=== PATIENT | male | born 1930 | race Caucasian/White ===

== ENCOUNTER 2017-08-29 16:04 | Inpatient (IN) | payer MEDICARE, BC ==
[2017-08-29] MEDS ORDERED: NORMAL SALINE 1,000 ML IV ONE (17:33)
--- NOTE | 2017-08-29 17:45 | ERNOTE ---
Medical Problem HPI - Narrative Date of Service: 08/29/17 - General Chief Complaint: General Assessment Time Seen by Provider: 08/29/17 17:14 Source: patient Exam Limitations: no limitations - Immun/Allergies/Home Medications Immunizations: IMMUNIZATION HX Immunizations Up to Date Yes History of Influenza Vaccine Yes Hx Pneumococcal Vaccination Yes Allergies/Adverse Reactions: Allergies terfenadine [From Seldane] Allergy (Unknown, Verified 11/24/15 08:59) adhesive tape Allergy (Unverified 10/30/16 12:58) Sulfa (Sulfonamide Antibiotics) [Sulfa(Sulfonamide Antibiotics)] Adverse Reaction (Mild, Verified 11/24/15 08:59) RASH Home Medications: HOME MEDICATIONS Aspirin [Aspir 81] 81 mg PO DAILY 08/10/12 [Last Taken 12/08/13] Atorvastatin Calcium 40 mg PO DAILY 08/10/12 [Last Taken 12/09/13] Finasteride [Proscar] 5 mg PO DAILY 08/10/12 [Last Taken 12/09/13] Levothyroxine Sodium [Tirosint] 75 mcg PO DAILY 08/10/12 [Last Taken 12/08/13] Nitroglycerin [Nitrostat] 0.4 mg SL [id number] PRN 08/10/12 [Last Taken Unknown] Allopurinol [Zyloprim] 150 mg PO DAILY 08/15/13 [Last Taken 12/09/13] Cholecalciferol [Vitamin D] 1,000 unit PO DAILY 08/15/13 [Last Taken 12/09/13] Cyanocobalamin [Vitamin B-12] 1,000 mcg PO DAILY 08/15/13 [Last Taken 12/09/13] Glucosamine/Chondroitin Sulf A [Glucosamine Chondroitin Cap] 2 each PO 1200 [Last Taken Unknown] Metoprolol Tartrate [Lopressor] 25 mg PO BID 08/15/13 [Last Taken 12/09/13] Warfarin Sodium [Coumadin] 5 mg PO [id number] 08/15/13 [Last Taken 09/14/15] Insulin Glargine,Hum.rec.anlog [Lantus] 45 units SC QAM 12/09/13 [Last Taken 09/12] Insulin Glargine,Hum.rec.anlog [Lantus] 35 units SQ QPM 07/03/14 [Last Taken Unknown] Polyethylene Glycol 3350 [Miralax] 17 gm PO DAILY 07/03/14 [Last Taken Unknown] Fluticasone Propionate [Flonase Allergy Relief] 1 spray NS HS 04/05/15 [Last Taken Unknown] Albuterol Sulfate [Proair Hfa] 1 puff IH Q6H PRN 08/16/15 [Last Taken Unknown] Torsemide 200 mg PO DAILY 08/16/15 [Last Taken Unknown] Warfarin Sodium [Coumadin] 7.5 mg PO WE 08/16/15 [Last Taken 09/14/15] Beta-Carotene(A)-Vits C,E/Mins [Ocutabs Tablet] 1 each PO DAILY 09/13/15 [Last Taken Unknown] Ramipril [Altace] 5 mg PO DAILY 09/13/15 [Last Taken Unknown] Insulin Aspart [Novolog] 15 units SC TID 11/15/15 [Last Taken Unknown] - History of Present History Narrative: Pt. comes in with c/o low blood pressure and weakness for a day. Pt. also states that he has had diarrhea for three days. Pt. states that he has been eating and drinking normally but denies any SOB, CP, fevers, alleviating or aggravating factors. Timing: getting worse Severity: moderate Modifying Factors - (Improves): Present: other - denies Modifying Factors - (Worsens): Present: other - denies Review of Systems - Review of Systems Constitutional: Present: weakness, fatigue, malaise. Absent: recent illness, fever, chills EYE: Present: no symptoms reported ENT: Present: no symptoms reported Respiratory: Present: no symptoms reported. Absent: shortness of breath, cough , wheezing Cardiology: Present: no symptoms reported. Absent: chest pain, palpitations, edema Gastrointestinal/Abdominal: Present: nausea, diarrhea. Absent: abdominal pain Genitourinary: Present: no symptoms reported. Absent: frequency, decreased urinary output Musculoskeletal: Present: no symptoms reported. Absent: back pain, joint pain Skin: Present: no symptoms reported. Absent: rash, change in color Neurological: Present: no symptoms reported. Absent: headache, dizziness/light- headedness, weakness, numbness, tingling All Other Systems: All systems neg except as marked - Patient's Past Medical History Patient History - Medical: Arthritis, Diabetes Type 2, Obesity, Osteoarthritis Patient History - Cardiac/Respiratory: Coronary Heart Disease Patient History - Cancer: Skin Patient History - Surgical Procedures: Cholecystectomy, Colonoscopy, Coronary Bypass Surgery Patient History - Other: None - Family History Mother Family History - Medical: Father Family History - Medical: - Social History Smoking Status: Former smoker Have you smoked in the past 12 months: No Do you dip or chew tobacco: No - Immunizations Immunizations Up to Date: Yes Hx Pneumococcal Vaccination: Yes History of Influenza Vaccine: Yes Physical Exam - Physical Exam General Appearance: Present: wd/wn, alert, no apparent distress Head Exam: Present: normal inspection, no evidence of injury, no tenderness w palpation Eye Exam: Normal inspection: bilateral Ears, Nose, Throat: Present: normal ENT inspection, normal pharynx Neck: Present: normal inspection, nontender, supple, full range of motion. 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 Absent: skin rash ED Progress - Date and Time Seen: Date and Time: 08/29/17 19:21 Discussed case with Lisa and she accepts pt. for admission. - Results and Orders Patient's Lab Results:: I have reviewed the patient's lab results. Results and Orders: Abnormal Lab Results 08/29/17 08/29/17 08/29/17 Range/Units 17:45 17:45 17:45 WBC 12.2 H (4.0-10.5) K/mm3 RDW 16.0 H (11.5-14.0) % Plt Count 136 L (150-450) K/mm3 MPV 10.2 H (6.0-9.5) fl Immature Gran % (Auto) 0.70 H (0.001-0.429) % Immature Gran # (Auto) 0.08 H (0.000-0.0310) K/mm3 Neutrophils % 82.2 H (42-75.0) % Lymphocytes % 9.3 L (20-51) % Neutrophils # 10.1 H (1.3-6.0) K/mm3 Lymphocytes # 1.1 L (1.5-3.5) k/mm3 Anion Gap 14.9 H (6.8-13.8) mmol/L BUN 88 H D (6-23) mg/dL Creatinine 2.27 H D (0.4-1.4) mg/dL Est GFR (Non-Af Amer) 29 L D (60-130) mL/min BUN/Creatinine Ratio 38.8 H (9.0-21.6) Lactic Acid, Venous 2.2 H* (0.4-1.9) mmol/L Calcium Adj for Albumin 8.2 L (8.4-10.2) mg/dL ALT 18 L (19-67) U/L B-Natriuretic Peptide 721 H (5-650) pg/mL - Vital Signs Patient's Vital Signs:: I have reviewed the patient's vital signs. Vital Signs: Vital Signs 08/29/17 08/29/17 16:09 17:11 Temperature 35.8 C L Pulse Rate 76 92 Respiratory 18 18 Rate Blood Pressure 90/42 88/48 O2 Sat by Pulse 94 95 Oximetry - X-Ray X-Ray #1 X-Ray: chest Interpretation: Reviewed by me X-ray Comments: consistent changes with COPD X-Ray #2 X-Ray: abdomen Interpretation: Reviewed by me X-ray Comments: General paucity of bowel gas and scattered bowel gas consistant with colitis - Progress/Reassessment Chief Complaint: General Assessment Progress:: Unchanged Departure Clinical Impression: Gastroenteritis and colitis, toxic, Dehydration Sepsis Qualifiers: Sepsis type: sepsis due to unspecified organism Qualified Code(s): A41.9 - Sepsis, unspecified organism Hypotension Qualifiers: Hypotension type: unspecified hypotension type Qualified Code(s): I95.9 - Hypotension, unspecified - Departure Disposition: [facility] Condition: Serious
[2017-08-29 17:50] LABS: Hematocrit 42.1 % (42.0-52.0); Hemoglobin 14.5 gm/dL (13.5-18.0); Mean Cell Volume 88.6 fl (78-100); Mean Corpuscular Hemoglobin 30.5 pg (27-31); Mean Corpuscular Hgb Conc 34.4 g/dl (32-36); Mean Platelet Volume 10.2 fl (6.0-9.5); Neutrophil # 10.1 K/mm3 (1.3-6.0); Neutrophil % 82.2 % (42-75.0); Platelet Count 136 K/mm3 (150-450); Red Blood Count 4.75 M/mm3 (4.7-6.0); White Blood Count 12.2 K/mm3 (4.0-10.5)
[2017-08-29 18:20] LABS: Albumin * 3.6 gm/dl (3.4-5.0); Anion Gap 14.9 mmol/L (6.8-13.8); BUN/Creatinine Ratio 38.8 (9.0-21.6); Bilirubin, Total 0.8 mg/dL (0.0-1.1); Ca. Corrected For Albumin 8.2 mg/dL (8.4-10.2); Calcium * 8.2 mg/dL (7.9-10.9); Carbon Dioxide 25.9 mmol/L (24-32.6); Potassium 3.8 mmol/L (3.4-4.6); Total Protein 7.4 gm/dL (6.2-8.2)
[2017-08-29] MEDS ORDERED: CIPROFLOXACIN IN 5 % DEXTROSE 400 MG/200 ML BAG IV SCH (18:30)
[2017-08-29] MEDS ORDERED: metroNIDAZOLE/SODIUM CHLORIDE 500 MG/100 ML BAG IV SCH (18:30)
[2017-08-29] MEDS: NORMAL SALINE 1,000 ML IV PRN (20:05)
[2017-08-29] MEDS ORDERED: ALBUTEROL SULFATE 200 PUFF INHALER IH PRN (21:03)
--- NOTE | 2017-08-29 21:15 | HP ---
Chief Complaint - Chief Complaint Date of Service: 08/29/17 Time of Service: 22:00 Chief Complaint: Diarrhea History of Present Illness: Pt is an 87 yo male pt of Dr. Kilpatrick who presented to the ER with reports of "1 loose stool every hours since Saturday." PMH is significant for A-fib-on Coumadin , cardiomyopathy, CKD stage 3 d/t DMII, CHF, COPD, CAD, diabetic neuropathy, Gout, HLD, HTN, mitral regurgitation, and ALEISHA with home O2. Associated symptoms include dizziness, weakness, and dysuria. Denies taking anything for symptoms prior to arrival. Denies any abdominal pain, N/V, blood from rectum, or fever/ chills. Inital BP in ER were in the 90s, which improved with IVF. Pt remained afebrile. Additional laboratory findings were as followed: WBC 12.2, BUN/Creat 88/2.27 (baseline 1.5-1.7), h/h 14.5/42.1, lactic acid 2.2. Chest xray was without any acute findings. Abdominal xray with scattered air fluid levels in the upper abdomen. UA consistent with UTI, culture to follow. Pt received one dose of Flagyl and Cipro. Due to his multiple co-morbidities, advanced age, and presenting symptoms he will be admitted for further workup and treatment of gastroenteritis, YRIS, UTI, and hyptotension. - Patient's Past Medical History Patient History - Medical: Arthritis, Diabetes Type 2 Insulin Dependent, Obesity , Osteoarthritis, Renal Disease Patient History - Cardiac/Respiratory: Cardiomyopathy, Coronary Heart Disease, COPD, Hypertension, Hyperlipidemia, Valvular Heart Disease, Home O2 Use, CPAP/ BiPAP Home Use, Sleep Apnea Patient History - Cancer: Skin Patient History - Surgical Procedures: Cataracts, Cholecystectomy, Colonoscopy, Coronary Bypass Surgery, Pacemaker, T & A Patient History - Other: None - Family History Mother Family History - Medical: Father Family History - Medical: - Social History Living Situations: alone Abuse History: No History of abuse Psych History: No pertinent hx Does anyone smoke in the home?: No Smoking Status: Former smoker Have you smoked in the past 12 months: No Do you dip or chew tobacco: No Smoking Stop Date: 09/30/69 Patient requests Smoking Cessation Consult: No Initiate information on Smoking Cessation: No Alcohol Use: none Drug Use: none - Immunizations Immunizations Up to Date: Yes Hx Pneumococcal Vaccination: Yes History of Influenza Vaccine: Yes Review Of Systems (GEN) - Review of Systems Generalized/Overall Review: Present: Weakness, Fatigue EENTM: Present: No Symptoms Reported Respiratory: Present: No Symptoms Reported Cardiac: Present: No Symptoms Reported Abdominal: Present: Diarrhea Genitourinary: Present: Burning, Other - suprapubic pain following urination Musculoskeletal: Present: No Symptoms Reported Neurological: Present: No Symptoms Reported Skin: Present: No Symptoms Reported Endocrine: Present: No Symptoms Reported Immunizations: IMMUNIZATION HX Immunizations Up to Date Yes History of Influenza Vaccine Yes Hx Pneumococcal Vaccination Yes Allergies/Adverse Reactions: Allergies Allergy/AdvReac Type Severity Reaction Status Date / Time terfenadine [From Seldane] Allergy Unknown Verified 08/30/17 00:41 Sulfa (Sulfonamide AdvReac Mild RASH Verified 08/30/17 00:41 Antibiotics) [Sulfa(Sulfonamide Antibiotics)] Home Medications: HOME MEDICATIONS Aspirin [Aspir 81] 81 mg PO DAILY 08/10/12 [Last Taken 12/08/13] Atorvastatin Calcium 40 mg PO DAILY 08/10/12 [Last Taken 12/09/13] Finasteride [Proscar] 5 mg PO DAILY 08/10/12 [Last Taken 12/09/13] Levothyroxine Sodium [Tirosint] 75 mcg PO DAILY 08/10/12 [Last Taken 12/08/13] Allopurinol [Zyloprim] 150 mg PO DAILY 08/15/13 [Last Taken 12/09/13] Glucosamine/Chondroitin Sulf A [Glucosamine Chondroitin Cap] 1,500 mg PO 1200 [Last Taken Unknown] Metoprolol Tartrate [Lopressor] 25 mg PO BID 08/15/13 [Last Taken 12/09/13] Warfarin Sodium [Coumadin] 5 mg PO ONCE 08/15/13 [Last Taken 09/14/15] Insulin Glargine,Hum.rec.anlog [Lantus] 45 units SC QAM 12/09/13 [Last Taken 09/12] Insulin Glargine,Hum.rec.anlog [Lantus] 30 units SQ QPM 07/03/14 [Last Taken Unknown] Fluticasone Propionate [Flonase Allergy Relief] 1 spray NS 04/05/15 [Last Taken Unknown] Albuterol Sulfate [Proair Hfa] 1 puff IH Q6H PRN 08/16/15 [Last Taken Unknown] Torsemide 200 mg PO DAILY 08/16/15 [Last Taken Unknown] Warfarin Sodium [Coumadin] 7.5 mg PO ONCE 08/16/15 [Last Taken 09/14/15] Ramipril [Altace] 5 mg PO DAILY 09/13/15 [Last Taken Unknown] Cholecalciferol (Vitamin D3) [Vitamin D3] 2,000 unit PO DAILY 08/29/17 [Last Taken Unknown] Denosumab [Prolia] 60 mg SC ONCE 08/29/17 [Last Taken Unknown] Docusate Sodium 100 mg PO BID PRN 08/29/17 [Last Taken Unknown] Insulin Aspart [Novolog Flexpen] 15 unit SC TID 08/29/17 [Last Taken Unknown] Metolazone 2.5 mg PO ONCE PRN 08/29/17 [Last Taken Unknown] Polyethylene Glycol 3350 [Miralax] 17 gm PO DAILY 08/29/17 [Last Taken Unknown] Exam - Exam Vital Signs: Vital Signs - Last Taken Temp 36.4 C L 08/29/17 19:17 Pulse 73 08/29/17 19:47 Resp 18 08/29/17 19:17 BP 113/52 08/29/17 19:47 Pulse Ox 97 3L 08/29/17 19:47 Constitutional: Present: Alert, Oriented x3, Cooperative, No distress, Elderly, Obese ENT Exam: Present: normal ENT inspection, hearing grossly normal Eye Exam: bilateral eye: normal inspection, PERRL Back Exam: Present: normal inspection, no CVA tenderness, no vertebral tenderness Respiratory: Present: chest non-tender, lungs clear, normal breath sounds, no respiratory distress, no accessory muscle use Cardiovascular/Chest: Present: normal peripheral pulses, regular rate, rhythm, no chest tenderness, no gallop, no JVD, no murmur, edema Peripheral Pulses: dorsalis-pedis (R): 2+, dorsalis-pedis (L): 2+, radial (R): 2 +, radial (L): 2+ Abdomen: Present: Normal bowel sounds, soft, nondistended, no rebound tenderness , no hepatospenomegaly, no masses, suprapubic tenderness Extremity: Present: normal range of motion, non-tender, normal inspection, no calf tenderness, normal capillary refill, lower extremity edema Skin Exam: Present: normal color, warm/dry, no cyanosis, other - BLE chronic discoloration Lymphatic: Present: no adenopathy Neurologic: Present: alert, normal mood/affect, oriented x 3 Appearance: Present: appropriate appearance Eye contact: Present: cooperative Thoughts: Present: normal thought pattern Diagnostic Studies: Laboratory Results Laboratory Tests Laboratory Tests 08/29/17 08/29/17 08/29/17 17:45 17:45 17:45 WBC 12.2 H Hgb 14.5 Hct 42.1 Plt Count 136 L Neutrophils % 82.2 H Sodium 136 Potassium 3.8 Chloride 99 Carbon Dioxide 25.9 BUN 88 H D Creatinine 2.27 H D Est GFR (Non-Af Amer) 29 L D BUN/Creatinine Ratio 38.8 H Random Glucose 99 Lactic Acid, Venous 2.2 H* Total Bilirubin 0.8 AST 44 ALT 18 L Alkaline Phosphatase 84 B-Natriuretic Peptide 721 H Total Protein 7.4 Urine Blood Urine Urobilinogen Ur Leukocyte Esterase Urine WBC Urine Bacteria Urine Culture Comments 08/29/17 21:30 WBC Hgb Hct Plt Count Neutrophils % Sodium Potassium Chloride Carbon Dioxide BUN Creatinine Est GFR (Non-Af Amer) BUN/Creatinine Ratio Random Glucose Lactic Acid, Venous Total Bilirubin AST ALT Alkaline Phosphatase B-Natriuretic Peptide Total Protein Urine Blood 5 H Urine Urobilinogen Normal Ur Leukocyte Esterase 500 H Urine WBC >50 H Urine Bacteria 1+ H Urine Culture Comments Culture to follow Assessment/Plan - Assessment/Plan (1) Dehydration Assessment: Secondary to diarrhea. Will continue to provide IV hydration overnight. Problem: Acute (2) YRIS (acute kidney injury) Assessment: Secondary to dehydration from acute GI loss. Baseline creat 1.5-1.7, slightly improved on repeat labs from 2.27 to 2.17. Will continue to provide IVF, limit nephrotoxic drugs. Problem: Acute (3) Gastroenteritis Assessment: Unclear if infectious verses viral in nature. Pt with slight elevation in leukocytes on arrival, 12.2 with elevated lactic acid of 2.2, but have since resolved with adequate fluid resuscitation. Pt denies any further episodes of diarrhea since 2pm this evening. Pending c-diff culture. Will repeat labs in am. Problem: Acute (4) Hypotension Assessment: Pt hypotensive in the 90's upon arrival to the ER, following fluid bolus BP have remained in the 110's. Will hold antihypertensives until pt is more hemodynamically stable. Differentials include infection verses volume depletion , however given recent diarrhea for the past 2 days, volume depletion more likely. Problem: Acute Qualifiers: Hypotension type: unspecified hypotension type Qualified Code(s): I95.9 - Hypotension, unspecified (5) On home oxygen therapy Assessment: Continue home o2 of 3L NC. Problem: Chronic (6) ALEISHA (obstructive sleep apnea) Assessment: Continue CPAP at home settings. Problem: Chronic (7) DM type 2 causing CKD stage 3 Assessment: NPO for bowel rest, will hold insulin this PM. Resume in am with diet if diarrhea subsides, otherwise will need ongoing basal coverage. Accu checks Q6H. 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 Pt on coumadin daily, however and him report that it is on hold until he receives his cortisone shot on Monday 09/03. Will confirm with Dr. Wolf in am. PT/INR in am. Problem: Chronic (10) HLD (hyperlipidemia) Problem: Chronic (11) CHF (congestive heart failure) Problem: Chronic (12) HTN (hypertension) Assessment: Hypotensive secondary to dehydration related to acute gastritis. Will hold antihypertensive medications until hemodynamically stable. Continuous cardiac nurse in place. VS Q4H Problem: Chronic (13) COPD (chronic obstructive pulmonary disease) Assessment: Stable, continue Ventolin. Problem: Chronic
[2017-08-29 21:34] LABS: Urine Bilirubin Negative (NEGATIVE); Urine Ketone Negative (NEGATIVE); Urine Nitrite Negative (NEGATIVE); Urine Protein Negative (NEGATIVE); Urine Urobilinogen Normal (NORMAL); Urine pH 5.5 pH (5.0-7.0)
[2017-08-29 21:45] LABS: Urine Appearance Cloudy; Urine Bacteria 1+; Urine Blood 5 /ul (NEGATIVE); Urine Color Yellow; Urine Hyaline Cast TRACE /LPF; Urine RBC 0-5 /hpf (0-5); Urine WBC >50 /hpf (0-5)
[2017-08-29] MEDS ORDERED: DENOSUMAB 60 MG/ML SC SCH (22:00)
[2017-08-29 22:13] LABS: Hematocrit 38.2 % (42.0-52.0); Mean Cell Volume 88.4 fl (78-100); Mean Corpuscular Hemoglobin 30.1 pg (27-31); Mean Platelet Volume 9.3 fl (6.0-9.5); Neutrophil # 6.8 K/mm3 (1.3-6.0); Neutrophil % 77.9 % (42-75.0); Platelet Count 104 K/mm3 (150-450); Red Blood Count 4.32 M/mm3 (4.7-6.0); Red Cell Distribution Width 15.9 % (11.5-14.0); White Blood Count 8.8 K/mm3 (4.0-10.5)
[2017-08-29] MEDS: FLUTICASONE PROPIONATE 120 SPRAY INHALER NS SCH (22:16)
[2017-08-29 22:28] LABS: Albumin * 3.2 gm/dl (3.4-5.0); Anion Gap 12.6 mmol/L (6.8-13.8); BUN/Creatinine Ratio 40.6 (9.0-21.6); Bilirubin, Total 0.9 mg/dL (0.0-1.1); Ca. Corrected For Albumin 8.1 mg/dL (8.4-10.2); Calcium * 7.8 mg/dL (7.9-10.9); Carbon Dioxide 24.6 mmol/L (24-32.6); Potassium 3.2 mmol/L (3.4-4.6); Total Protein 6.6 gm/dL (6.2-8.2)
[2017-08-30] MEDS ORDERED: metroNIDAZOLE/SODIUM CHLORIDE 500 MG/100 ML BAG IV SCH (01:30)
[2017-08-30] MEDS ORDERED: NORMAL SALINE 500 ML IV ONE (03:45)
[2017-08-30] MEDS: NORMAL SALINE 1,000 ML IV PRN ×3 (03:49→22:02)
[2017-08-30] MEDS ORDERED: ALBUTEROL SULFATE 2.5 MG/0.5 ML VIAL.NEB IH PRN (06:41)
[2017-08-30] MEDS ORDERED: CIPROFLOXACIN IN 5 % DEXTROSE 200 MG/100 ML BAG IV SCH (07:30)
[2017-08-30 07:41] LABS: Hematocrit 38.9 % (42.0-52.0); Hemoglobin 13.3 gm/dL (13.5-18.0); Mean Cell Volume 87.8 fl (78-100); Mean Corpuscular Hgb Conc 34.2 g/dl (32-36); Mean Platelet Volume 9.6 fl (6.0-9.5); Neutrophil # 5.5 K/mm3 (1.3-6.0); Neutrophil % 77.7 % (42-75.0); Platelet Count 106 K/mm3 (150-450); Red Blood Count 4.43 M/mm3 (4.7-6.0); Red Cell Distribution Width 15.8 % (11.5-14.0)
[2017-08-30 07:59] LABS: Albumin * 3.1 gm/dl (3.4-5.0); Anion Gap 13.7 mmol/L (6.8-13.8); BUN/Creatinine Ratio 40.8 (9.0-21.6); Bilirubin, Total 0.8 mg/dL (0.0-1.1); Ca. Corrected For Albumin 7.9 mg/dL (8.4-10.2); Calcium * 7.5 mg/dL (7.9-10.9); Carbon Dioxide 24.6 mmol/L (24-32.6); Potassium 3.3 mmol/L (3.4-4.6); Total Protein 6.4 gm/dL (6.2-8.2)
[2017-08-30] MEDS: CHOLECALCIFEROL 1,000 UNIT CAPSULE PO SCH (08:44)
[2017-08-30] MEDS: FINASTERIDE 5 MG TABLET PO SCH (08:44)
[2017-08-30] MEDS: ALLOPURINOL 100 MG TABLET PO SCH (08:44)
[2017-08-30] MEDS: ASPIRIN 81 MG TABLET.DR PO SCH (08:45)
[2017-08-30] MEDS: LEVOTHYROXINE SODIUM 75 MCG TABLET PO SCH (08:45)
[2017-08-30] MEDS ORDERED: ATORVASTATIN CALCIUM 40 MG TABLET PO SCH ×2 (09:00→21:00)
[2017-08-30] MEDS: Glucosamine Chondroitin Cap PO SCH (13:47)
--- NOTE | 2017-08-30 18:41 | PN ---
Subjective - Date and Time Seen Date: 08/30/17 Time: 09:00 Subjective Narrative: Patient seen and examined at bedside. Patient admits to not feeling well and having watery diarrhea. He admits to nausea but denies vomiting. Minimal improvement since admission but thinks he may be starting to feel better. Objective - Review of Systems Generalized/Overall Review: Reports: Weakness, Fatigue EENTM: Reports: No Symptoms Reported Respiratory: Reports: No Symptoms Reported Cardiac: Reports: No Symptoms Reported Abdominal: Reports: Nausea, Abdominal Pain, Diarrhea. Denies: Vomiting, Hematemesis, Melena, Bright blood from rectum Genitourinary Symptoms: Reports: No Symptoms Reported Musculoskeletal Complaints: Reports: Joint Pain - chronic, Back Pain - chronic Neurological: Reports: No Symptoms Reported Skin: Reports: No Symptoms Reported Endocrine: Reports: No Symptoms Reported Misc: All systems neg except as marked - Vitals Vitals: Last Vital Signs Temp 36.4 C L 08/30/17 14:51 Pulse 77 08/30/17 14:51 Resp 16 08/30/17 14:51 BP 127/63 08/30/17 14:51 Pulse Ox 96 08/30/17 14:51 - Exam Constitutional: Present: Alert, Oriented x3, Cooperative, No distress, Elderly ENT Exam: Present: dry mucous membranes Respiratory: Present: lungs clear, normal breath sounds, no respiratory distress , no accessory muscle use Cardiovascular/Chest: Present: regular rate, rhythm, edema Abdomen: Present: soft, nondistended, no rebound tenderness, tender. Absent: guarding, rigidity Skin Exam: Present: warm/dry Neurologic: Present: alert, normal mood/affect, oriented x 3 Appearance: Present: appropriate appearance, appropriate insight, neat, no memory impairment Eye contact: Present: cooperative, good eye contact, normal speech Thoughts: Present: normal thought pattern, no apparent hallucination Assessment/Plan Plan Narrative: The patient has gastroenteritis which is likely viral in nature. Discontinue antibiotics which were given in the ED. Stool studies pending. Patient has a history of heart failure as well as chronic kidney disease which constipates her situation as we trying adequately hydrate the patient without causing volume overload. The patient will need to remain in the hospital for at least one more midnight for ongoing IV fluid hydration and close monitoring of his fluid status. If clinical condition and volume status improves and remains stable, the patient will likely be discharged home in a.m. - Problems/Diagnosis (1) Gastroenteritis Problem: Acute
[2017-08-30] MEDS: FLUTICASONE PROPIONATE 120 SPRAY INHALER NS SCH (20:41)
[2017-08-30] MEDS ORDERED: INSULIN GLARGINE,HUM.REC.ANLOG 100 UNITS/ML VIAL SC SCH (21:30)
[2017-08-31 05:55] LABS: Calcium * 7.5 mg/dL (7.9-10.9); Carbon Dioxide 24.2 mmol/L (24-32.6); Estimated Creat Clear 55.4; Potassium 3.2 mmol/L (3.4-4.6)
[2017-08-31] MEDS: NORMAL SALINE 1,000 ML IV PRN (06:06)
--- NOTE | 2017-08-31 06:35 | DS ---
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 QualifierTitle: Diabetes mellitus longterm insulin use: with terminal worker use Qualified Code(s): E11.22 - Type 2 diabetes mellitus with diabetic chronic kidney disease; N18.3 - Chronic kidney disease, stage 3 (moderate); N18.3 - Chronic kidney disease, stage 3 (moderate); Z79.4 - intermediate frame tender (current) use of insulin; Z79.4 - intermediate frame tender (current) use of insulin; Z79.4 - intermediate frame tender ( current) use of insulin; Z79.4 - MCC (current) use of insulin (8) Gout Problem: Chronic (9) Chronic a-fib Problem: Chronic (10) HLD (hyperlipidemia) Problem: Chronic (11) CHF (congestive heart failure) Problem: Chronic (12) HTN (hypertension) Problem: Chronic (13) COPD (chronic obstructive pulmonary disease) Problem: Chronic Description of Stay: Pt is an 87 yo male pt of Dr. Kilpatrick who presented to the ER with reports of "1 loose stool every hours since Saturday." PMH is significant for A-fib-on Coumadin , cardiomyopathy, CKD stage 3 d/t DMII, CHF, COPD, CAD, diabetic neuropathy, Gout, HLD, HTN, mitral regurgitation, and ALEISHA with home O2. Associated symptoms include dizziness, weakness, and dysuria. Denies taking anything for symptoms prior to arrival. Denies any abdominal pain, N/V, blood from rectum, or fever/ chills. Inital BP in ER were in the 90s, which improved with IVF. Pt remained afebrile. Additional laboratory findings were as followed: WBC 12.2, BUN/Creat 88/2.27 (baseline 1.5-1.7), h/h 14.5/42.1, lactic acid 2.2. Chest xray was without any acute findings. Abdominal xray with scattered air fluid levels in the upper abdomen. UA consistent with UTI, culture to follow. Pt received one dose of Flagyl and Cipro, although not continued. Due to his multiple co- morbidities, advanced age, and presenting symptoms he will be admitted for further workup and treatment of gastroenteritis, YRIS, UTI, and hyptotension. During his hospital course here he was treated with IVF, his YRIS has slowly resolved. BUN/Creat this am is 52/1.30. He remained afebrile, leukocytosis and lactic acid returned to normal following hydration leading to a more viral picture. He will be discharged home with instructions to follow up with his PCP in one week. Discharge Disposition: Home self care Disposition: Home self-care Condition: Stable Discharge Activity: Activity as tolerated Discharge Diet: Consistent carbs Referrals: Candace Kilpatrick DO [Primary Care Provider] - Additional Patient Instructions (free text): TCM appointment unless long term discharge. Thank you! [phone] [phone]. Follow-up with PCP within 1-2 weeks. Check BMP at follow-up visit. Complete Home Medications List: Complete Home Medication List: Aspirin [Aspir 81] 81 mg PO DAILY 08/10/12 Atorvastatin Calcium 40 mg PO DAILY 08/10/12 Finasteride [Proscar] 5 mg PO DAILY 08/10/12 Levothyroxine Sodium [Tirosint] 75 mcg PO DAILY 08/10/12 Allopurinol [Zyloprim] 150 mg PO DAILY 08/15/13 Glucosamine/Chondroitin Sulf A [Glucosamine Chondroitin Cap] 1,500 mg PO 1200 Metoprolol Tartrate [Lopressor] 25 mg PO BID 08/15/13 Warfarin Sodium [Coumadin] 5 mg PO SUMOTUTHFRSA 08/15/13 Insulin Glargine,Hum.rec.anlog [Lantus] 45 units SC QAM 12/09/13 Insulin Glargine,Hum.rec.anlog [Lantus] 30 units SQ QPM 07/03/14 Fluticasone Propionate [Flonase Allergy Relief] 1 spray NS HS 04/05/15 Albuterol Sulfate [Proair Hfa] 1 puff IH Q6H PRN 08/16/15 Torsemide 200 mg PO DAILY 08/16/15 Warfarin Sodium [Coumadin] 7.5 mg PO WE 08/16/15 Ramipril [Altace] 5 mg PO DAILY 09/13/15 Cholecalciferol (Vitamin D3) [Vitamin D3] 2,000 unit PO DAILY 08/29/17 Denosumab [Prolia] 60 mg SC ONCE 08/29/17 Docusate Sodium 100 mg PO BID PRN 08/29/17 Insulin Aspart [Novolog Flexpen] 15 unit SC TID 08/29/17 Metolazone 2.5 mg PO ONCE PRN 08/29/17 Polyethylene Glycol 3350 [Miralax] 17 gm PO DAILY 08/29/17 <Candace Kilpatrick - Last Filed: 08/31/17 10:20> (1) Gastroenteritis Problem: Acute (2) Dehydration Problem: Resolved Description of Stay: ADMISSION DATE: 08/29/2017 DISCHARGE DATE: 08/31/2017 ADMISSION HPI by Lisa Calderon: Pt is an 87 yo male pt of Dr. Kilpatrick who presented to the ER with reports of "1 loose stool every hours since Saturday." PMH is significant for A-fib-on Coumadin , cardiomyopathy, CKD stage 3 d/t DMII, CHF, COPD, CAD, diabetic neuropathy, Gout, HLD, HTN, mitral regurgitation, and ALEISHA with home O2. Associated symptoms include dizziness, weakness, and dysuria. Denies taking anything for symptoms prior to arrival. Denies any abdominal pain, N/V, blood from rectum, or fever/ chills. Inital BP in ER were in the 90s, which improved with IVF. Pt remained afebrile. Additional laboratory findings were as followed: WBC 12.2, BUN/Creat 88/2.27 (baseline 1.5-1.7), h/h 14.5/42.1, lactic acid 2.2. Chest xray was without any acute findings. Abdominal xray with scattered air fluid levels in the upper abdomen. UA consistent with UTI, culture to follow. Pt received one dose of Flagyl and Cipro. Due to his multiple co-morbidities, advanced age, and presenting symptoms he will be admitted for further workup and treatment of gastroenteritis, YRIS, UTI, and hyptotension. HOSPITAL COURSE: The patient was admitted to the hospital with gastroenteritis, likely viral in etiology. He was treated conservatively with IV fluid hydration and clear liquid diet which was advanced as tolerated. The patient responded well to IV fluid hydration and was discharged home in stable condition. He was instructed to maintain adequate oral hydration, especially if he has ongoing diarrhea. FOLLOW-UP APPOINTMENTS: PCP, Dr. Kilpatrick, within 1-2 weeks. Check BMP at follow-up appointment. NEW OR CHANGED MEDICATIONS: None *Of note, patient is currently holding his Coumadin until he has an AZIZA on 09/05. DISCONTINUED MEDICATIONS: None RADIOLOGY REPORTS: PA and lateral chest x-ray on 08/29/2017 showed: No focal acute cardiopulmonary finding. Stable findings. Flat with upright abdominal x-ray on 08/29/2017 showed: Nonspecific bowel gas pattern, with generalized paucity of bowel gas. Few scattered air-fluid levels noted in the upper abdomen could represent underlying colitis or enteritis. No definite signs of intestinal obstruction. Correlate clinically. Splenomegaly suggested. Procedures Performed: none Discharge Disposition: Home self care Discharge Activity: Activity as tolerated Discharge Diet: Consistent carbs, Resume usual diet
[2017-08-31] MEDS: ALLOPURINOL 100 MG TABLET PO SCH (08:18)
[2017-08-31] MEDS: CHOLECALCIFEROL 1,000 UNIT CAPSULE PO SCH (08:18)
[2017-08-31] MEDS: FINASTERIDE 5 MG TABLET PO SCH (08:19)
[2017-08-31] MEDS: POTASSIUM CHLORIDE 20 MEQ TABLET.SA PO SCH ×2 (08:19→13:53)
[2017-08-31] MEDS: ASPIRIN 81 MG TABLET.DR PO SCH (08:19)
[2017-08-31] MEDS: LEVOTHYROXINE SODIUM 75 MCG TABLET PO SCH (08:19)
[2017-08-31] MEDS ORDERED: ENOXAPARIN SODIUM 40 MG/0.4 ML SYRG SC SCH (08:45)
[2017-08-31] MEDS: Glucosamine Chondroitin Cap PO SCH (13:54)
[2017-08-31 15:37] VITALS: BP 126/62
== END 2017-08-31 15:23 | disposition home or self-care (01) | DRG 392 ==
LOC: ER 16:04 → MS 19:16 → OBSVTOIN 08-30 16:23
PROVIDERS: ADMIT Nurse Practitioner Gerontology; ATTEND Internal Medicine
DX: A08.4 Viral intestinal infection, unspecified (principal); N17.9 Acute kidney failure, unspecified; E86.0 Dehydration; E11.22 Type 2 diabetes mellitus with diabetic chronic kidney disease; I48.2 Chronic atrial fibrillation; I12.9 Hypertensive chronic kidney disease with stage 1 through stage 4 chronic kidney disease, or unspecified chronic kidney disease; E78.5 Hyperlipidemia, unspecified; N18.3 Chronic kidney disease, stage 3 (moderate); I95.9 Hypotension, unspecified; J44.9 Chronic obstructive pulmonary disease, unspecified; I25.10 Atherosclerotic heart disease of native coronary artery without angina pectoris; Z99.81 Dependence on supplemental oxygen; Z79.82 Long term (current) use of aspirin; Z79.01 Long term (current) use of anticoagulants; Z79.4 Long term (current) use of insulin; Z95.1 Presence of aortocoronary bypass graft; Z87.891 Personal history of nicotine dependence; Z85.828 Personal history of other malignant neoplasm of skin; Z95.0 Presence of cardiac pacemaker
CPT/HCPCS: 36415; 71020; 74020; 80048; 80053; 81001; 83605; 83880; 85025; 87040; 87045; 87046; 87086; 87177; 87209; 87493; 94660; 96361; 96365; 99285; G0378